=== PATIENT | female | born 1995 | race American Indian/Alaskan Native ===

== ENCOUNTER 2017-01-05 09:42 | Emergency (ER) | payer OTHER ==
[2017-01-05 09:57] VITALS: TEMP 98.6; BMI 24.4
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
[2017-01-05] MEDS ORDERED: Oxycodone/Acetaminophen 5/325 mg Tab PO STA (10:13)
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
[2017-01-05 12:21] VITALS: BP 127/72; PULSE 62; RESP 20; O2SAT 100
== END 2017-01-05 12:21 | disposition home or self-care (01) ==
LOC: ED 09:42
DX: R51 Headache (principal); M54.2 Cervicalgia; V49.59XA Passenger injured in collision with other motor vehicles in traffic accident, initial encounter; Y92.410 Unspecified street and highway as the place of occurrence of the external cause